=== PATIENT | female | born 2000 | race Caucasian/White ===

== ENCOUNTER 2020-09-22 14:37 | Outpatient (CLI) | payer OTHER, SELFPAY ==
--- NOTE | ~2020-09-22 | US_ITS ---
EXAMINATION: US OB /maternal detail DATE: 09/22/2020 15:40 INDICATION: Assess anatomy and growth during second trimester of . TECHNIQUE: Multiple obstetric sonographic images performed. FINDINGS: There is a single living fetus in breech presentation. The placenta is anterior and not low-lying wi th caudal margin 4.9 cm from the internal cervical os. NORMA measures 11.1 which is normal (5th%-95%: 9 .5-21.4 cm at 21 weeks estimated gestational age) . heart rate of 135 beats per minute. The following anatomy was identified as normal: Ventricles, choroid plexus, falx and cava septum pellucidum Cerebellum and cisterna magna Nuchal fold Nasal bone Upper lip Spine Heart Diaphragm Stomach Kidneys Bladder 3 vessel cord and cord insertion Bilateral upper and lower extremities including hands and feet The following biometric data were obtained: BPD: 4.8 cm -> 20 weeks 4 days Head circumference: 19.0 cm -> 21 weeks 2 days Abdominal circumference: 17.2 cm -> 22 weeks 1 days Femur length: 3.5 cm -> 21 weeks 0 days Borderline dolichocephaly with cephalic index of 69.0 slightly below the normal range (70-86). These measurements are otherwise concordant. Head circumference to abdominal circumference ratio: 1.10 (normal range 1.06-1.24). Estimated weight: 433 g (+/-) 65 g. or 15 oz. (+/-) 2 oz. IMPRESSION: 1. Single living fetus with breech presentation with heart rate of 135 bpm. 2. Gestational age by ultrasound of 21 weeks 2 day(s) (+/-) 1 week 3 day(s) with ultrasound estimat ed date of delivery (YADIEL) of 01/31/2021. Estimated weight is 75th percentile by Hadlock criteria when 02/02/2021 is used as the YADIEL. Please correlate with clinical information or earlier ultrasounds for most accurate YADIEL. 3. Normal survey. 4. Normal amniotic fluid index of 11.1 cm. 5. Borderline dolichocephaly with cephalic index of 69 slightly below the normal range of 70-86. Reviewed, dictated and finalized at location A. OL SERGEANT IMPRESSION: 1. Single living fetus with breech presentation with heart rate of 135 b pm. 2. Gestational age by ultrasound of 21 weeks 2 day(s) (+/-) 1 week 3 day(s) w ith ultrasound estimated date of delivery (YADIEL) of 01/31/2021. Estimated w eight is 75th percentile by Hadlock criteria when 02/02/2021 is used as the YADIEL. Please correlate with clinical information or earlier ultrasounds for most acc urate YADIEL. 3. Normal survey. 4. Normal amniotic fluid index of 11.1 cm. 5. Borderline dolichocephaly with cephalic index of 69 slightly below the chai l range of 70-86.
== END 2020-09-22 14:38 | disposition home or self-care (01) ==
PROVIDERS: Visit Provider Obstetrics & Gynecology
DX: Z34.92 Encounter for supervision of normal pregnancy, unspecified, second trimester (principal); Z3A.21 21 weeks gestation of pregnancy
CPT/HCPCS: 76805

== ENCOUNTER 2020-11-27 13:28 | Outpatient (CLI) | payer OTHER, SELFPAY ==
--- NOTE | ~2020-11-27 | US_ITS ---
EXAMINATION: US OB follow up DATE: 11/27/2020 14:03 INDICATION: Assess growth during third trimester . TECHNIQUE: Real-time ultrasound of the pelvis was performed. The interpreting radiologist was not pre sent for the study. COMPARISON: 09/22/2020 FINDINGS: There is a single living fetus in vertex presentation. The placenta is anterior. heart rate is 152 beats per minute (bpm). The amniotic fluid index is 15.1 cm, which is normal (5th%-95%: 9.0-23. 4 cm at 30 weeks estimated gestational age). The following biometric data were obtained: BPD: 7.9 cm -> 31 weeks 5 days Head circumference: 28.6 cm -> 31 weeks 3 days Abdominal circumference: 28.5 cm -> 32 weeks 4 days Femur length: 5.6 cm -> 29 weeks 2 days These measurements are concordant. Head circumference to abdominal circumference ratio: 1.00 (normal range 0.96-1.16). Estimated weight: 1761 g (+/-) 264 g. or 3 lbs. 14 oz. (+/-) 9 oz. IMPRESSION: 1. Single living fetus in vertex presentation with heart rate of 152 bpm. 2. Normal amniotic fluid index of 15.1 cm. 3. Estimated weight is 72nd percentile by Hadlock criteria when 02/02/2021 is used as the estima yu date of delivery (YADIEL). Please correlate with clinical information or earlier ultrasounds for mos t accurate YADIEL. Reviewed, dictated and finalized at location B. IMPRESSION: 1. Single living fetus in vertex presentation with heart rate of 152 bpm. 2. Normal amniotic fluid index of 15.1 cm. 3. Estimated weight is 72nd percentile by Hadlock criteria when 02/02/2021 is used as the estimated date of delivery (YADIEL). Please correlate with clinica l information or earlier ultrasounds for most accurate YADIEL.
== END 2020-11-27 13:29 | disposition home or self-care (01) ==
PROVIDERS: Visit Provider Obstetrics & Gynecology
DX: Z34.82 Encounter for supervision of other normal pregnancy, second trimester (principal)
CPT/HCPCS: 76816

== ENCOUNTER 2020-12-03 12:49 | Observation (INO) | payer OTHER, SELFPAY ==
[2020-12-03 13:02] VITALS: BMI 28.2
--- NOTE | 2020-12-03 13:03 | OBADM ---
This patient, Irish Pineda, admitted to the OB room OB Post 117 for observation. Patient/family oriented to hospital policies and general routines including ID bracelet, bed and alarms, visiting hours, pain management, procedures, bathroom and other care routines, personal items, smoking policy, room service/diet, and visiting hours. Patient/Family are encouraged to report perceived risks to care and to ask questions if they do not understand what they are told or what they should do.
[2020-12-03 13:15] VITALS: BP 112/65; PULSE 74
[2020-12-03 13:30] VITALS: BP 115/71; PULSE 92
--- NOTE | 2020-12-03 13:39 | PC.NURSE ---
1340- Spoke with Dr. Gottlieb, NST reviewed, no contractions noted. Patient states 0/10 pain at this time. Orders to discharge to home with follow up in office.
[2020-12-03 13:48] VITALS: BP 115/71; PULSE 73
--- NOTE | 2020-12-04 11:08 | PM.OBTRLD ---
OB - Triage/Final Diagnosis Visit Information Date of evaluation: 12/03/20 Reason for evaluation: threatened labor Comments/Additional reasons for admission: I have assessed the risk for this patient, Irish Romina Miriam, and determined that she would benefit from observation care. Evaluation Baseline heart rate: 144 Variability: Moderate (11-25) monitor accelerations: Present monitor decelerations: None Cervical dilation (cm): 0 Cervical effacement (%): 0 station: -4 Vital signs: Vital Signs - 24 hr 12/03/20 13:15 12/03/20 13:30 12/03/20 13:48 Pulse Rate 74 92 73 Blood Pressure 112/65 115/71 Blood Pressure [Left Arm] 115/71 Final Diagnosis (1) False labor: Code(s): O47.9 - False labor, unspecified Status: Acute
== END 2020-12-03 13:48 | disposition home or self-care (01) ==
PROVIDERS: Admitting Provider Obstetrics & Gynecology; Visit Provider Obstetrics & Gynecology
DX: O47.03 False labor before 37 completed weeks of gestation, third trimester (principal); Z3A.31 31 weeks gestation of pregnancy
CPT/HCPCS: 59025; G0378; G0379

== ENCOUNTER 2020-12-14 10:56 | Observation (INO) | payer OTHER, SELFPAY ==
[2020-12-14 11:30] VITALS: BP 115/66; PULSE 102
[2020-12-14 11:46] VITALS: BP 103/62; PULSE 93
[2020-12-14] MEDS: DEXTROSE 5%/LACTATED RINGERS 1,000 ML 999 ML IV CONT (11:55)
[2020-12-14 11:56] LABS: Hemoglobin 10.9 g/dL (12.0-15.0); Mean Corpuscular HGB Conc 35.2 g/dl (32-36); Mean Corpuscular Hemoglobin 32.9 pg (26-34); Mean Corpuscular Volume 93.7 fl (80-100); Mean Platelet Volume 8.7 fl (7.4-10.4); Platelet Count Result 295 k/mm3 (150-375); Red Blood Count 3.31 M/mm3 (4.2-5.4); Red Cell Distribution Width 13.9 % (11.5-14.5); White Blood Count 7.4 K/mm3 (4.5-10.0)
[2020-12-14] MEDS: METOCLOPRAMIDE HCL INJ 10 MG/2 ML VIAL IV PUSH (11:56)
[2020-12-14 12:00] VITALS: BP 100/61; PULSE 99
--- NOTE | 2020-12-14 12:00 | OBADM ---
This patient, Irish Pineda, admitted to the OB room 112 at 1056 for observation for nausea and vomiting. Patient/family oriented to hospital policies and general routines including ID bracelet, bed and alarms, visiting hours, pain management, procedures, bathroom and other care routines, personal items, smoking policy, room service/diet, and visiting hours. Patient/Family are encouraged to report perceived risks to care and to ask questions if they do not understand what they are told or what they should do.
[2020-12-14 12:09] VITALS: BMI 27.8
[2020-12-14 12:13] LABS: Alanine Aminotransferase 10 U/L (4-35); Albumin Level 3.8 g/dL (3.5-5.1); Alkaline Phosphatase 118 U/L (38-126); Anion Gap 13 mmol/L (8-16); Aspartate Amino Transferase 26 U/L (14-36); Bilirubin,Total 0.7 mg/dL (0.2-1.3); Carbon Dioxide 15 mmol/L (22-30); Chloride 109 mmol/L (98-107); Estimated CRCL calculation 135 ml/min; Estimated Glomerular Filt Rate > 60; Glucose 86 mg/dL (65-105); Sodium 137 mmol/L (137-145)
[2020-12-14 12:16] LABS: Blood Urea Nitrogen < 2 mg/dL (7-17)
[2020-12-14] MEDS: DEXTROSE 5%/LACTATED RINGERS 1,000 ML 200 ML IV CONT ×2 (12:38→14:08)
[2020-12-14 13:00] VITALS: BP 99/66; PULSE 92
--- NOTE | 2020-12-14 13:27 | PC.NURSE ---
1110- called to inform pt came in stating she has been vomiting for the last 4 days and isn't able to keep anything down. Orders received to bolus 3 liters of D5LR, IV reglan and zofran.
[2020-12-14 14:00] VITALS: BP 98/63; PULSE 92
[2020-12-14] MEDS: ONDANSETRON INJ 4 MG/2 ML VIAL IV PUSH (14:08)
[2020-12-14 15:01] VITALS: BP 95/47; PULSE 91
--- NOTE | 2020-12-14 15:27 | PC.NURSE ---
3653-'s nurse called,informed pt states she's feeling better and has had 3 liters of fluid. Orders received to discharge pt home.
--- NOTE | 2020-12-15 06:42 | PM.OBTRLD ---
OB - Triage/Final Diagnosis Visit Information Comments/Additional reasons for admission: I have assessed the risk for this patient, Irish Pineda, and determined that she would benefit from observation care. Evaluation Laboratory results: Laboratory Tests 12/14/20 12/14/20 11:48 11:48 WBC 7.4 RBC 3.31 L Hgb 10.9 L Hct 31.0 L MCV 93.7 MCH 32.9 MCHC 35.2 RDW 13.9 Plt Count 295 MPV 8.7 Sodium 137 Potassium 3.0 L Chloride 109 H Carbon Dioxide 15 L Anion Gap 13 BUN < 2 L Creatinine 0.50 L Estim Creat Clear Calc 135 Estimated GFR > 60 Glucose 86 Calcium 8.0 L Total Bilirubin 0.7 AST 26 ALT 10 Alkaline Phosphatase 118 Total Protein 7.0 Albumin 3.8 Vital signs: Vital Signs - 24 hr 12/14/20 11:30 12/14/20 11:46 12/14/20 12:00 Pulse Rate 102 H 93 99 Blood Pressure 115/66 103/62 100/61 12/14/20 13:00 12/14/20 14:00 12/14/20 15:01 Pulse Rate 92 92 91 Blood Pressure 99/66 L 98/63 L 95/47 L Final Diagnosis (1) Nausea and vomiting during : Code(s): O21.9 - Vomiting of , unspecified Status: Acute (2) Dehydration during : Code(s): O26.899 - Other specified related conditions, unspecified trimester; E86.0 - Dehydration Status: Acute
== END 2020-12-14 15:30 | disposition home or self-care (01) ==
PROVIDERS: Admitting Provider Obstetrics & Gynecology; Visit Provider Obstetrics & Gynecology
DX: O21.9 Vomiting of pregnancy, unspecified (principal); O99.280 Endocrine, nutritional and metabolic diseases complicating pregnancy, unspecified trimester; E86.0 Dehydration; Z3A.00 Weeks of gestation of pregnancy not specified
CPT/HCPCS: 36415; 80053; 85027; 96361; 96374; 96375; G0378; G0379; J2405; J2765; J7121

== ENCOUNTER 2021-02-03 06:15 | Inpatient (IN) | payer OTHER, SELFPAY ==
[2021-02-03] VITALS (136 sets, daily range): BP systolic 86–134; BP diastolic 42–83; PULSE 53–114; RESP 16–20; TEMP 36.6–37.2; O2SAT 79–100; BMI 29.4
[2021-02-03] MEDS: LACTATED RINGERS 1,000 ML 125 ML IV CONT ×3 (06:53→08:14)
[2021-02-03 06:54] LABS: Basophils Percent Auto 0.4 % (0.2-1.2); Eosinophils Absolute Auto 0.2 K/mm3 (0-0.3); Eosinophils Percent Auto 1.9 % (0-4.4); Hematocrit 32.3 % (37.0-47.0); Hemoglobin 10.9 g/dL (12.0-15.0); Immature Granulocyte Absolute 0.06 K/mm3 (0.00-0.031); Immature Granulocyte Percent A 0.6 % (0-0.5); Lymphocytes Percent Auto 28.4 % (18.3-44.2); Mean Corpuscular HGB Conc 33.7 g/dl (32-36); Mean Corpuscular Hemoglobin 31.8 pg (26-34); Mean Corpuscular Volume 94.2 fl (80-100); Mean Platelet Volume 8.7 fl (7.4-10.4); Monocytes Absolute Auto 0.7 K/mm3 (0.1-0.6); Monocytes Percent Auto 7.1 % (2.6-8.5); Neutrophils Absolute Auto 5.9 K/mm3 (1.3-6.7); Neutrophils Percent Auto 61.6 % (45.5-73.1); Platelet Count Result 407 k/mm3 (150-375); Red Blood Count 3.43 M/mm3 (4.2-5.4); Red Cell Distribution Width 14.4 % (11.5-14.5); White Blood Count 9.5 K/mm3 (4.5-10.0)
[2021-02-03] MEDS: AMPICILLIN 2 GM/NS 100 ML 2 GM/100 ML BAG IVPB (07:37)
--- NOTE | 2021-02-03 07:46 | WPDANESEPPF ---
Anes - Initial Pre Proc Eval Procedure: labor epidural Date/Time: 02/03/21 07:46 Surgeon: Cheo Gottlieb MD Pre Op Diagnosis: labor pain Pre Op Diagnosis: labor Patient Data Age: 20 Gender: F Height: 1.57 m Weight: 73 kg Last Vital Signs Pulse 62 02/03/21 07:45 BP 116/80 02/03/21 07:45 Pulse Ox 100 02/03/21 07:41 Allergies Allergy/AdvReac Type Severity Reaction Status Date / Time No Known Allergies Allergy Verified 01/20/21 14:34 Home Medications Medication Instructions Recorded Confirmed Type PNV cmb#95-ferrous fumarate-FA 1 tablet PO DAILY 12/03/20 12/14/20 History [] aspirin 81 mg PO DAILY 12/03/20 12/14/20 History calcium carbonate-vitamin D3 1 tablet PO DAILY 12/03/20 12/14/20 History [Calcium 600 + D(3)] folic acid 1 mg PO DAILY 12/03/20 12/14/20 History progesterone micronized 200 mg PO DAILY 12/03/20 12/14/20 History Laboratory Tests 02/03/21 02/03/21 02/03/21 06:48 06:48 07:21 WBC 9.5 K/mm3 K/mm3 (4.5-10.0) RBC 3.43 M/mm3 L M/mm3 (4.2-5.4) Hgb 10.9 g/dL L g/dL (12.0-15.0) Hct 32.3 % L % (37.0-47.0) MCV 94.2 fl fl (80-100) MCH 31.8 pg pg (26-34) MCHC 33.7 g/dl g/dl (32-36) RDW 14.4 % % (11.5-14.5) Plt Count 407 k/mm3 H k/mm3 (150-375) MPV 8.7 fl fl (7.4-10.4) Immature Gran % (Auto) 0.6 % H % (0-0.5) Neut % (Auto) 61.6 % % (45.5-73.1) Lymph % (Auto) 28.4 % % (18.3-44.2) [place] % (Auto) 7.1 % % (2.6-8.5) Eos % (Auto) 1.9 % % (0-4.4) Baso % (Auto) 0.4 % % (0.2-1.2) Lymph # (Auto) 2.70 K/mm3 K/mm3 (0.9-3.2) [place] # (Auto) 0.7 K/mm3 H K/mm3 (0.1-0.6) Eos # (Auto) 0.2 K/mm3 K/mm3 (0-0.3) Baso # (Auto) 0.0 K/mm3 K/mm3 (0.0-0.1) Abs Immat Gran (auto) 0.06 K/mm3 H K/mm3 (0.00-0.031) Absolute Neuts (auto) 5.9 K/mm3 K/mm3 (1.3-6.7) Absolute Nucleated RBC 0.0 K/mm3 K/mm3 (0.0-0.012) Nucleated RBC % 0.0 % % (0.0-0.2) Urine Opiates Screen Pending Urine Methadone Screen Pending Ur Barbiturates Screen Pending Ur Phencyclidine Scrn Pending Ur Amphetamine Screen Pending U Benzodiazepines Scrn Pending Urine Cocaine Screen Pending U Cannabinoids Screen Pending RPR Pending Patient hx anesthesia problems: none Family hx anesthesia problems: none PMFSH Family History Family History (Updated 01/20/21 @ 14:34 by Liliana Patel RN) Other Unknown family medical history Social History Social History Smoking status: Never smoker Second hand tobacco smoke exposure: Yes Substance use: former Spiritual care concerns: No Anes - Eval Final PreProcedure Day of Procedure 02/03/21 07:46 Patient weight: overweight ASA classification: II Anesthesia type and monitoring: regional epidural Informed Consent: The patient's anesthetic plan and its attendant risks and benefits were discussed with the patient/family/POA. Questions were solicited and answers provided to the satisfaction of the patient/family/POA.
[2021-02-03 08:04] LABS: Barbiturate Screen Urine Negative (Negative); Benzodiazepines Screen Urine Negative (Negative)
[2021-02-03 08:07] LABS: Amphetamine Screen Urine Negative (Negative); Cannabinoid Screen Urine Negative (Negative); Cocaine Screen Urine Negative (Negative); Methadone Screen Urine Negative (Negative); Opiate Screen Urine Negative (Negative); Phencyclidine Screen Urine Negative (Negative)
--- NOTE | 2021-02-03 08:39 | PM.IMHP ---
H&P: HPI History of Present Illness Date/Time: 02/03/21 08:39 20 y/o primigravida at 40W presents WITH SPONTANEOUS RUPTURE MEMBRANES AT 5:00 A.M. IN SPONTANEOUS LABOR 4 CM DILATED ON ADMISSION. complicated by hx of NG, HPV, MTHFR and GERD. Chief Complaint: Spontaneous rupture membranes spontaneous onset of labor Term Review of Systems Review of Systems: All systems reviewed & are unremarkable except as noted in HPI and below Constitutional: Constitutional: Reports no additional constitutional complaints Eyes: Eyes: Reports no additional eye complaints ENT: Reports system reviewed and no additional complaints, except as documented Cardiovascular: Cardiovascular: Reports no additional cardiovascular complaints Respiratory: Respiratory: Reports no additional respiratory complaints Gastrointestinal: Gastrointestinal: Reports no additional gastrointestinal complaints Genitourinary: Genitourinary: Reports no additional female genitourinary complaints Musculoskeletal: Musculoskeletal: Reports no additional musculoskeletal complaints Integumentary/Breasts: Skin/Breast: Reports system reviewed and no additional complaints, except as docu Neurologic: Reports system reviewed and no additional complaints, except as documented Psychiatric: Psychiatric: Reports no additional psychiatric complaints Endocrine: Endocrine: Reports no additional endocrine complaints Hematologic/Lymphatic: Hematologic/Lymphatic: Reports no additional hematologic/lymphatic complaints Allergic/Immunologic: Allergic/Immunologic: Reports no additional allergic/immunologic complaints PMF Past Medical History Medical History (Updated 02/03/21 @ 14:45 by Cheo Gottlieb MD) Gonorrhea HPV (human papilloma virus) anogenital infection Maternal varicella, non-immune Rubella non-immune status, antepartum Term Surgical History Surgical History (Updated 02/03/21 @ 14:47 by Cheo Gottlieb MD) H/O lithotripsy Family History Family History Other Unknown family medical history Social History Social History (Updated 02/03/21 @ 14:48 by Cheo Gottlieb MD) Smoking status: Never smoker Second hand tobacco smoke exposure: Yes Alcohol intake: never Substance use: former Substance use type: marijuana Living arrangements: with family Occupation/Education: unemployed Gender identity (if verbalized by the patient): Female Sexual Orientation (if Verbalized by the Patient): Straight or Heterosexual Spiritual care concerns: No Agree to blood products: Yes Meds Home Medications and Allergies Home Medications Medication Instructions Recorded Confirmed Type PNV cmb#95-ferrous fumarate-FA 1 tablet PO DAILY 12/03/20 02/03/21 History [] aspirin 81 mg PO DAILY 12/03/20 02/03/21 History calcium carbonate-vitamin D3 1 tablet PO DAILY 12/03/20 02/03/21 History [Calcium 600 + D(3)] folic acid 1 mg PO DAILY 12/03/20 02/03/21 History progesterone micronized 200 mg PO DAILY 12/03/20 02/03/21 History Allergies Allergy/AdvReac Type Severity Reaction Status Date / Time No Known Allergies Allergy Verified 01/20/21 14:34 Vital Signs Vital Signs - 24 hr 02/03/21 06:56 02/03/21 07:00 02/03/21 07:15 Temperature Pulse Rate 64 76 86 Blood Pressure 115/83 124/80 134/77 Pulse Oximetry 02/03/21 07:30 02/03/21 07:34 02/03/21 07:37 Temperature Pulse Rate 79 63 69 Blood Pressure 112/74 118/75 111/73 Pulse Oximetry 79 L 02/03/21 07:39 02/03/21 07:41 02/03/21 07:42 Temperature Pulse Rate 74 63 Blood Pressure 113/64 115/70 Pulse Oximetry 100 100 02/03/21 07:44 02/03/21 07:45 02/03/21 07:46 Temperature Pulse Rate 59 L 62 Blood Pressure 119/78 116/80 Pulse Oximetry 99 02/03/21 07:48 02/03/21 07:51 02/03/21 07:54 Temperature Pulse Rate 59 L 66 65 Blood Pressure 120/76 116/67 1
--- NOTE | 2021-02-03 08:42 | WPDOBADMIT ---
Obstetrics - Admit Note Admission Note: record reviewed. No pertinent additions to the history and/or any subsequent changes in the physical findings that are not consistent with the expected course of the were found. Additions to the history and/or subsequent changes in the physical findings follow. None. 20 y/o primigravida at 40W presents WITH SPONTANEOUS RUPTURE MEMBRANES AT 5:00 A.M. IN SPONTANEOUS LABOR 4 CM DILATED ON ADMISSION. complicated by hx of NG, HPV, MTHFR and GERD.
[2021-02-03] MEDS: ONDANSETRON INJ 4 MG/2 ML VIAL IV PUSH (08:56)
[2021-02-03 08:57] LABS: Rapid Plasma Reagin Non-Reactive (NonReactive)
[2021-02-03] MEDS: AMPICILLIN 1 GM/NS 50 ML 1 GM/50 ML BAG IVPB (11:19)
[2021-02-03] MEDS: OXYTOCIN 30 UNITS/NS 500 ML 30 UNITS/500 ML BAG 999 UNITS IV CONT (14:26)
--- NOTE | 2021-02-03 14:34 | PM.OBPRVD ---
OB - Delivery Note Procedure Delivery date: 02/03/21 Procedure: Normal spontaneous vertex vaginal delivery a viable female infant and placenta Intrapartal events: None Induction method: none Delivery monitor: external FHT and external uterine Route of delivery: Episiotomy description: None Laceration Description: None Specimen: Yes (Placenta, cord blood, cord blood gases) Quantitative Blood Loss (ml): 250 Anesthesia type: Epidural Disposition: floor Complications: None Narrative: Adequate pushing in the 2nd stage of labor capped off by successful tug of war. Normal spontaneous vertex vaginal delivery of viable female over an intact perineum with normal delivery of the anterior shoulder and baby delivered and placed onto the maternal abdomen with a short umbilical cord the cord was clamped and cut. Spontaneous respirations and cry no observed abnormalities in the examination except for normal molding of the caput. Placenta cord gases cord blood obtained and then the placenta was delivered intact with a three-vessel cord the uterus contracted well with Pitocin given intravenously blood clots removed from the intrauterine cavity the uterus was firm at 4 cm above the pubic symphysis. There were no cuts tears or lacerations the sponge count correct no complication baby was handed to the nurse in attendance scores 8 9 weight 7 lb 13 oz taken to the nursery in stable condition. [place] Baby Date of : 02/03/21 Time of : 14:23 Weeks of gestation at delivery: 40 gender: Female Weight (pounds): 7 Weight (ounces): 13 presentation: vertex position: Left Occiput Posterior Placenta delivery description: Spontaneous and Normal Configuration cord vessel description: 3 Vessels score one minute: 8 score five minutes: 9 Narrative: 2 nursery stable condition
--- NOTE | 2021-02-03 14:42 | WPDHPUPDATE1 ---
History and Physical Update Update Date/Time: 02/03/21 09:00 History and Physical has been reviewed, including an updated exam of the patient. There are NO changes in the patient's condition. Risks, benefits, and alternatives have been discussed and questions answered. Patient agrees to proceed with procedure. 20 y/o primigravida at 40W presents WITH SPONTANEOUS RUPTURE MEMBRANES AT 5:00 A.M. IN SPONTANEOUS LABOR 4 CM DILATED ON ADMISSION. complicated by hx of NG, HPV, MTHFR and GERD.
[2021-02-03] MEDS: OXYTOCIN 30 UNITS/NS 500 ML 30 UNITS/500 ML BAG 125 UNITS IV CONT (14:50)
--- NOTE | 2021-02-03 17:33 | PC.NURSE ---
Patient transferred to post room #277 per wheelchair from labor and delivery. Support person present. Oriented to unit, room, information board, rooming in, admission packet and security measures. Patient verbalizes understanding.
[2021-02-04] MEDS: IBUPROFEN 600 MG TABLET PO ×4 (04:20→23:21)
[2021-02-04 05:34] VITALS: BP 98/51; PULSE 64; PULSE 65; RESP 16; TEMP 36.2; O2SAT 97; O2SAT 98
[2021-02-04 05:50] LABS: Hematocrit 26.8 % (37.0-47.0); Hemoglobin 9.1 g/dL (12.0-15.0)
[2021-02-04 07:35] VITALS: BP 88/49; PULSE 59; RESP 16; TEMP 37.2; O2SAT 100
[2021-02-04] MEDS: DOCUSATE SODIUM 100 MG CAPSULE PO ×2 (09:44→17:56)
[2021-02-04] MEDS: POLYSACCHARIDE IRON COMPLEX 150 MG CAPSULE PO ×2 (09:44→17:52)
[2021-02-04 12:09] VITALS: BP 101/55; PULSE 67; RESP 16; TEMP 37.7; O2SAT 95
--- NOTE | 2021-02-04 15:42 | WPDANLDPN2 ---
Anes-Prog Note L&D Date/Time: 02/04/21 15:42 Comfortable throughout: labor and delivery Neuraxial method: epidural Neuro status: Neuro function grossly intact. Cardiovascular status: normal Respiratory status: normal Airway patency: baseline Mental status: baseline Post-Op hydration status: normal Vital Signs: Last Vital Signs Temp 37.7 C H 02/04/21 12:09 Pulse 67 02/04/21 12:09 Resp 16 02/04/21 12:09 BP 101/55 L 02/04/21 12:09 Pulse Ox 95 02/04/21 12:09 Pain score (VAS): 0/10. Patient resting in bed at time of assessment, appears comfortable. Support person at bedside. I/O: Intake & Output 02/03/21 02/04/21 02/04/21 23:59 07:59 15:59 Output Total 100 Balance -100 Post-procedural complaints: none Patient feedback: Patient satisfied with anesthetic care.
--- NOTE | 2021-02-04 18:43 | PC.NURSE ---
[id number] Patient and FOB viewed the discharge video Mother & Baby Care, The First Two Weeks . Patient was given the opportunity and encouraged to ask questions. Patient verbalized understanding of information shared and has been given the mother/baby guide for home reference.
[2021-02-04 19:00] VITALS: BP 104/62; PULSE 58; RESP 18; TEMP 37.1; O2SAT 98
--- NOTE | 2021-02-05 05:30 | P.PNOB_ITS ---
OB - PN: Subj Subjective Date/time seen: 02/04/21 05:30 Interval history: ppd1 Patient comments: no complaints, pain well controlled, tolerating diet and flatus present [place] baby status: doing well and nursing well feeding status: exclusively breast feeding OB - PN: Obj Data Labs CBC & Chem 7: 02/04/21 04:19 Labs: Laboratory Results - last 24 hr 02/04/21 04:19 Hgb 9.1 L Hct 26.8 L OB - PN A/P Assessment and Plan (1) Term delivered: Code(s): O80 - Encounter for full-term uncomplicated delivery Status: Acute Plan day: 1 Plan: routine care, discharge home and follow up 6 weeks Time Spent With Patient Time: Total time spent is greater than 50% in coordination of care (as d ocumented) at patient's floor/unit and/or counseling patient: Time with patient: less than 15 minutes Review of Systems Review of Systems: All systems reviewed & are unremarkable except as noted in HPI and below Exam Const: General: cooperative, healthy appearing, comfortable, no acute distress, well developed, alert, awake and Physically active Nutritional Appearance: average body habitus Orientation/consciousness: patient oriented x3 Limitations: no limitations HENMT: Head: normal to inspection Eyes: General: appearance normal, both eyes and all related structures Neck: Neck: normal visual inspection and full ROM Chest: Chest palpation & inspection: normal inspection of the chest Breast/axilla inspection: normal inspection of the breasts Resp: Effort & Inspection: normal respiratory effort Auscultation: clear to auscultation bilaterally Cardio: Rate: regular rate Rhythm: regular rhythm GI: Inspection: normal to inspection GI Palp: Yes Soft to palpation Auscultation: normal bowel sounds : External Female Exam: normal external appearance Bimanual exam- vagina & uterus: non-tender Back/Spine/Pelvis: Back: no CVA tenderness Skin: General skin exam: normal color Neuro: General: patient oriented x3, gait normal, tone normal and moves all extremities Extrem: General: normal to inspection and full ROM Psych: Appearance: grossly normal Mental Status: mental status grossly normal Speech and movement: Normal speech and movement present Affect: normal affect Attitude: cooperative Thought process: Normal thought process present Thought content: Yes Normal thought content present Insight: Good insight present (Psych) Judgement: Good judgement present (Psych)
--- NOTE | 2021-02-05 05:36 | PM.OBDSVD ---
DS: Admitting Diagnosis Admitting Diagnosis Admitting Diagnosis: Term spontaneous onset of labor spontaneous rupture of membranes DS: Discharge Diagnosis Discharge Diagnosis (1) Term delivered: Code(s): O80 - Encounter for full-term uncomplicated delivery Status: Acute (2) Spontaneous onset of labor: Status: Acute (3) Spontaneous rupture of membranes: Status: Acute (4) Maternal varicella, non-immune: Code(s): O09.899 - Supervision of other high risk pregnancies, unspecified trimester; Z28.3 - Underimmunization status Status: Acute (5) Rubella non-immune status, antepartum: Code(s): O99.891 - Other specified diseases and conditions complicating ; Z28.3 - Underimmunization status Status: Acute (6) Homozygous MTHFR mutation [id number]: Code(s): Z15.89 - Genetic susceptibility to other disease Status: Acute OB - DS: Summary Hospital Course Time spent discussing smoking cessation with patient: 3 to 10 minutes OB Procedures : Ultrasound OB Procedures Intrapartum: Spontaneous Vag Delivery OB Procedures: : Rubella lg and Other (Varicella Ig) Peripartum Data Delivery Method: Natural Vaginal Laceration Description: None Episiotomy description: None complications: none [place] 1: Gender: Female Disposition of : home Status at Discharge Functional status at discharge: independent ambulation Overall status at discharge: patient is back to baseline Time Spent with Patient Time attestation: Total time spent providing and/or coordinating discharge services: Time spent: Less than 30 minutes Exam Const: General: cooperative, healthy appearing, comfortable, well developed, alert, awake and Physically active Nutritional Appearance: average body habitus Orientation/consciousness: patient oriented x3 Limitations: no limitations HENMT: Head: normal to inspection Eyes: General: appearance normal, both eyes and all related structures Neck: Neck: normal visual inspection and full ROM Chest: Chest palpation & inspection: normal inspection of the chest Breast/axilla inspection: normal inspection of the breasts Resp: Effort & Inspection: normal respiratory effort Auscultation: clear to auscultation bilaterally Cardio: Rate: regular rate Rhythm: regular rhythm GI: Inspection: normal to inspection GI Palp: Yes Soft to palpation : External Female Exam: normal external appearance Bimanual exam- vagina & uterus: non-tender Back/Spine/Pelvis: Back: no CVA tenderness Skin: General skin exam: normal color Neuro: General: patient oriented x3, gait normal, tone normal, moves all extremities and Normal light touch and pain sensation Extrem: General: normal to inspection, full ROM and no clubbing, cyanosis or edema Psych: Appearance: grossly normal Mental Status: mental status grossly normal Speech and movement: Normal speech and movement present Affect: normal affect Attitude: cooperative Thought process: Normal thought process present Thought content: Yes Normal thought content present Insight: Good insight present (Psych) Judgement: Good judgement present (Psych) DS: Data Data Completed and Pending Pending studies at discharge: Pending at discharge 02/03/21 15:12 Surgical [PTH] Routine Labs on day of discharge: Labs from last 24 hours 02/04/21 04:19 Hgb 9.1 L Hct 26.8 L Discharge Plan Discharge Attending physician on discharge: Cheo Gottlieb Discharging Clinician: Cheo Gottlieb Anticipated Discharge Date/Time: 02/05/21 05:43 Patient Disposition: Home, Self-Care Activity: may shower, unlimited and as tolerated Diet: as tolerated and regular Wound Care Instructions: follow printed instructions Discharge Instructions: routine Patient Instructions: Antibiotic Form Stand Alone Forms: General Discharge Information Foll
[2021-02-05] MEDS: IBUPROFEN 600 MG TABLET PO ×2 (06:02→12:51)
[2021-02-05 10:00] VITALS: BP 106/72; PULSE 62; RESP 18; TEMP 36.3; O2SAT 100
[2021-02-05] MEDS: POLYSACCHARIDE IRON COMPLEX 150 MG CAPSULE PO (10:24)
[2021-02-05] MEDS: DOCUSATE SODIUM 100 MG CAPSULE PO (10:24)
[2021-02-05] MEDS: MEASLES,MUMPS,RUBELLA VACCINE 0.5 ML VIAL SUB-Q (11:17)
== END 2021-02-05 13:12 | disposition home or self-care (01) | DRG 560 ==
LOC: ANHLDR 06:22 → ANHOB2 17:43
PROVIDERS: Admitting Provider Obstetrics & Gynecology; Visit Provider Obstetrics & Gynecology
DX: O99.284 Endocrine, nutritional and metabolic diseases complicating childbirth (principal); Z37.0 Single live birth; Z3A.40 40 weeks gestation of pregnancy; E72.12 Methylenetetrahydrofolate reductase deficiency; O99.62 Diseases of the digestive system complicating childbirth; K21.9 Gastro-esophageal reflux disease without esophagitis; O98.32 Other infections with a predominantly sexual mode of transmission complicating childbirth; A63.0 Anogenital (venereal) warts; O98.22 Gonorrhea complicating childbirth
CPT/HCPCS: 36415; 80307; 84112; 85014; 85018; 85025; 86592; 86850; 86900; 86901; 88307; 90710; A9270; J0290; J2405; J2590; J2795; J7120

== ENCOUNTER 2022-06-24 06:07 | Inpatient (IN) | payer OTHER, SELFPAY ==
[2022-06-24] VITALS (120 sets, daily range): BP systolic 51–125; BP diastolic 28–83; PULSE 50–94; RESP 16; TEMP 36.4–37.7; O2SAT 92–100; BMI 29.4
[2022-06-24] MEDS: LACTATED RINGERS 1,000 ML 125 ML IV CONT ×2 (07:00→08:59)
[2022-06-24] MEDS: OXYTOCIN 30 UNITS/NS 500 ML 30 UNITS/500 ML BAG IV CONT (07:04)
[2022-06-24 07:16] LABS: Basophils Absolute Auto 0.1 K/mm3 (0.0-0.1); Basophils Percent Auto 0.7 % (0.2-1.2); Eosinophils Absolute Auto 0.1 K/mm3 (0-0.3); Eosinophils Percent Auto 1.2 % (0-4.4); Hematocrit 28.3 % (37.0-47.0); Hemoglobin 8.7 g/dL (12.0-15.0); Immature Granulocyte Absolute 0.04 K/mm3 (0.00-0.031); Immature Granulocyte Percent A 0.5 % (0-0.5); Lymphocytes Absolute Auto 2.23 K/mm3 (0.9-3.2); Lymphocytes Percent Auto 27.5 % (18.3-44.2); Mean Corpuscular HGB Conc 30.7 g/dl (32-36); Mean Corpuscular Hemoglobin 25.5 pg (26-34); Mean Platelet Volume 8.7 fl (7.4-10.4); Monocytes Absolute Auto 0.5 K/mm3 (0.1-0.6); Monocytes Percent Auto 5.8 % (2.6-8.5); Neutrophils Absolute Auto 5.2 K/mm3 (1.3-6.7); Neutrophils Percent Auto 64.3 % (45.5-73.1); Platelet Count Result 468 k/mm3 (150-375); Red Blood Count 3.41 M/mm3 (4.2-5.4); Red Cell Distribution Width 15.6 % (11.5-14.5); White Blood Count 8.1 K/mm3 (4.5-10.0)
--- NOTE | 2022-06-24 07:35 | WPDOBADMIT ---
Obstetrics - Admit Note Admission Note: record reviewed. No pertinent additions to the history and/or any subsequent changes in the physical findings that are not consistent with the expected course of the were found. pt 41 weeks IOL, /-2 AROM moderate amount of clear odorless fluid Additions to the history and/or subsequent changes in the physical findings follow. None.
[2022-06-24] MEDS: fentaNYL CITRATE INJ (*CRX) 100 MCG/2 ML VIAL IV PUSH (08:07)
[2022-06-24] MEDS: ONDANSETRON INJ 4 MG/2 ML VIAL IV PUSH (08:08)
[2022-06-24] MEDS: LACTATED RINGERS 1,000 ML 999 ML IV CONT (08:09)
--- NOTE | 2022-06-24 08:23 | WPDANESEPP ---
Anes - Eval Pre Procedure Procedure: Labor Epidural Date/Time: 06/24/22 08:23 Surgeon: Jennifer Preop Diagnosis: Labor pain Pre Op Diagnosis: Induction of Labor Patient Data Age: 21 Gender: F Height: 1.57 m Weight: 73 kg Last Vital Signs Temp 36.8 C 06/24/22 08:00 Pulse 65 06/24/22 08:17 BP 97/52 L 06/24/22 08:17 Pulse Ox 96 06/24/22 08:21 Allergies Allergy/AdvReac Type Severity Reaction Status Date / Time No Known Allergies Allergy Verified 06/06/22 12:31 Home Medications Medication Instructions Recorded Confirmed Type vit no.95-ferrous 1 tablet PO DAILY 12/03/20 06/24/22 History fumarate 28 mg-folic acid 800 mcg tablet () Laboratory Tests 06/24/22 06/24/22 06/24/22 06:53 06:53 06:54 WBC 8.1 K/mm3 K/mm3 (4.5-10.0) RBC 3.41 M/mm3 L M/mm3 (4.2-5.4) Hgb 8.7 g/dL L g/dL (12.0-15.0) Hct 28.3 % L % (37.0-47.0) MCV 83.0 fl fl (80-100) MCH 25.5 pg L pg (26-34) MCHC 30.7 g/dl L g/dl (32-36) RDW 15.6 % H % (11.5-14.5) Plt Count 468 k/mm3 H k/mm3 (150-375) MPV 8.7 fl fl (7.4-10.4) Immature Gran % (Auto) 0.5 % % (0-0.5) Neut % (Auto) 64.3 % % (45.5-73.1) Lymph % (Auto) 27.5 % % (18.3-44.2) Dewey % (Auto) 5.8 % % (2.6-8.5) Eos % (Auto) 1.2 % % (0-4.4) Baso % (Auto) 0.7 % % (0.2-1.2) Lymph # (Auto) 2.23 K/mm3 K/mm3 (0.9-3.2) Dewey # (Auto) 0.5 K/mm3 K/mm3 (0.1-0.6) Eos # (Auto) 0.1 K/mm3 K/mm3 (0-0.3) Baso # (Auto) 0.1 K/mm3 K/mm3 (0.0-0.1) Abs Immat Gran (auto) 0.04 K/mm3 H K/mm3 (0.00-0.031) Absolute Neuts (auto) 5.2 K/mm3 K/mm3 (1.3-6.7) Absolute Nucleated RBC 0.0 K/mm3 K/mm3 (0.0-0.012) Nucleated RBC % 0.0 % % (0.0-0.2) RPR Pending Blood Type A Positive Antibody Screen Pending : gestational age (YADIEL 06/17/22, ) Patient hx anesthesia problems: none Family hx anesthesia problems: none Results Review: All pre-operative results and documents have been reviewed as part of the pre-operative evaluation. [facility] Past Medical History Medical History Gonorrhea HPV (human papilloma virus) anogenital infection Maternal varicella, non-immune Rubella non-immune status, antepartum Term Surgical History Surgical History H/O lithotripsy Family History Family History Other Unknown family medical history Social History Social History Smoking status: Never smoker Second hand tobacco smoke exposure: No Alcohol intake: never Substance use: never Substance use type: marijuana Gender identity (if verbalized by the patient): Female Sexual Orientation (if Verbalized by the Patient): Straight or Heterosexual Spiritual care concerns: No Agree to blood products: Yes Exam Day of Procedure 06/24/22 08:23 Patient weight: normal Heart: regular rate and rhythm Lungs: normal air movement Airway: Mallampati scale class II Neurological: alert and oriented
[2022-06-24] MEDS: ePHEDrine sulfate INJ 50 MG/ML AMPUL IV PUSH (08:52)
--- NOTE | 2022-06-24 12:37 | PM.OBPRVD ---
OB - Delivery Note Procedure Delivery date: 06/24/22 Procedure: Events: Elective Induction of Labor Induction method: Per Pitocin Protocol Delivery augmentation: Rupture of Membranes Delivery monitor: External FHT and External Uterine Route of delivery: Episiotomy description: None Laceration Description: None Specimen: No Quantitative Blood Loss (ml): 76 Anesthesia type: Epidural Disposition: Floor Baby Date of : 06/24/22 Time of : 12:27 Weeks of gestation at delivery: 41 Infant gender: Female Weight (pounds): 8 Weight (ounces): 0 presentation: vertex position: Left Occiput Anterior (rotated transverse) Placenta delivery description: Spontaneous Cord Vessel Description: 3 Vessels, Nuchal Cord (x1), Tight and Clamped/Cut score one minute: 9 score five minutes: 9 Narrative: mom and baby stable and doing skin to skin
[2022-06-24 12:41] LABS: Rapid Plasma Reagin Non-Reactive (NonReactive)
[2022-06-24] MEDS: IBUPROFEN 600 MG TABLET PO ×2 (14:40→19:49)
[2022-06-25] MEDS: IBUPROFEN 600 MG TABLET PO ×2 (03:59→11:52)
[2022-06-25 04:00] VITALS: BP 99/55; PULSE 60; RESP 18; TEMP 36.8
--- NOTE | 2022-06-25 07:00 | PC.NURSE ---
PT introductions made and plan of care discussed per post , pain management, bottle feeding, daily care activities and pending discharge to home. PT and spouse both recipients of such instructions and no barriers to learning identified at this time. PT received such instructions per one to one discussion, mom baby care guide and demonstrations this shift. PT verbalized understanding of such care.
[2022-06-25 08:00] VITALS: BP 104/66; PULSE 108; RESP 12; TEMP 36.5; O2SAT 100
--- NOTE | 2022-06-25 08:32 | PM.OBPNVD ---
OB - PN: Subj Subjective Date/time seen: 06/25/22 08:32 Patient comments: no complaints baby status: doing well OB - PN: Obj Data Labs CBC & Chem 7: 06/24/22 06:54 Labs: Laboratory Results - last 24 hr 06/24/22 06/24/22 06:53 06:53 RPR Non-reactive Antibody Screen Negative OB - PN A/P Plan day: 1 Plan: routine care Comments: Awaiting post bloodwork. Time Spent With Patient Time: Total time spent is greater than 50% in coordination of care (as documented) at patient's floor/unit and/or counseling patient: Time with patient: less than 15 minutes Review of Systems Review of Systems: All systems reviewed & are unremarkable except as noted in HPI and below Exam Narrative: Fundus firm and vaginal flow controlled. No lower ext redness, warmth, or edema. Negative homans. Const: General: comfortable Chest: Breast/axilla inspection: normal inspection of the breasts Resp: Effort & Inspection: normal respiratory effort Cardio: Rate: regular rate GI: GI Palp: Yes Soft to palpation Psych: Appearance: grossly normal Affect: normal affect Attitude: cooperative Thought content: Yes Normal thought content present Judgement: Good judgement present (Psych)
[2022-06-25 11:30] VITALS: PULSE 108; RESP 12; O2SAT 100
[2022-06-25] MEDS: POLYSACCHARIDE IRON COMPLEX 150 MG CAPSULE PO (11:52)
[2022-06-25] MEDS: MULTIVIT/MIN/PREN/FOL AC/IRON TABLET 1 TAB PO (11:52)
[2022-06-25] MEDS: ACETAMINOPHEN 325 MG TABLET 650 MG PO (11:54)
[2022-06-25] MEDS: DOCUSATE SODIUM 100 MG CAPSULE PO (11:54)
--- NOTE | 2022-06-25 13:04 | WPDANLDPN2 ---
Anes-Prog Note L&D Date/Time: 06/25/22 13:04 Comfortable throughout: labor and delivery Neuraxial method: epidural Epidural/Spinal procedure site: clean & non-tender Neuro status: Neuro function grossly intact. Cardiovascular status: normal Respiratory status: normal Airway patency: baseline Mental status: baseline Post-Op hydration status: normal Vital Signs: Last Vital Signs Temp 36.5 C 06/25/22 08:00 Pulse 108 H 06/25/22 08:00 Resp 12 06/25/22 08:00 BP 104/66 06/25/22 08:00 Pulse Ox 100 06/25/22 08:00 O2 Del Method Room Air 06/24/22 19:50 Pain score (VAS): 09/20 I/O: Intake & Output 06/24/22 06/25/22 06/25/22 23:59 07:59 15:59 Intake Total 500 Balance 500 Post-procedural complaints: none Patient feedback: Patient satisfied with anesthetic care.
[2022-06-25 13:38] LABS: Hematocrit 25.1 % (37.0-47.0); Hemoglobin 7.6 g/dL (12.0-15.0)
--- NOTE | 2022-06-25 15:30 | PC.NURSE ---
PT received discharge instructions per protocol and verbalized understanding of such care.
--- NOTE | 2022-06-25 15:56 | PC.NURSE ---
Pt discharged to home ambulatory accompanied by fob and infant and taken to waiting car. follow up appts confirmed
--- NOTE | 2022-07-20 23:16 | PM.OBDSVD ---
DS: Admitting Diagnosis Discharge Date 06/25/22 Admitting Diagnosis term DS: Discharge Diagnosis Discharge Diagnosis (1) Term delivered: Code(s): O80 - Encounter for full-term uncomplicated delivery Status: Acute OB - DS: Summary OB Procedures : None OB Procedures Intrapartum: Spontaneous Vag Delivery OB Procedures: : None Time Spent with Patient Time attestation: Total time spent providing and/or coordinating discharge services: Discharge Plan Discharge Consulting providers: Jennifer Ortiz ; Jennifer Johns ; Viry Baumann Discharging Clinician: Jessica Rodriguez Patient Disposition: Home, Self-Care Activity: may shower, no straining, may drive after 2 weeks, as tolerated and pelvic rest Diet: regular Discharge Instructions: Education: Mom and Baby Guide Given to: Mother Follow-Up: Call your delivering provider's office for an appointment to be seen in: 6 Weeks Mom and baby should come to the [facility] for the follow-up appointment. Appointment Date/Time: June 27, 2022 at 10:00 am What to expect at your follow-up visit: Blood Pressure Check Call [phone] if you are unable to keep your appointment time. BREAST CARE: * Wear a snug supportive bra. * For engorgement discomfort: Bottle Feeding: * May apply ice packs PERINEAL CARE: * Until bleeding stops, use your arthur bottle after urinating * Change your pad frequently throughout the day * You may take sitz baths several times a day (fill your bathtub with warm water and soak for 20 minutes.) Do NOT bathe in the water * No tub baths until seen by your physician - You may shower ACTIVITY: * Rest as much as possible. * Do not exercise or lift anything heavier than your baby (such as laundry or other children.) * Avoid stairs or driving as much as possible. * Do not put anything into the vagina. No douching, tampons, or sexual activity until seen by physician. NOTIFY PHYSICIAN IF YOU HAVE ANY QUESTIONS OR IF ANY OF THE FOLLOWING SYMPTOMS OCCUR: * If your perineum becomes red, swollen, or more painful than what you have experienced in the hospital. * If your vaginal bleeding becomes foul smelling. * If your vaginal bleeding becomes more heavy than a period or if your bleeding changes from pink to bright red. However, you may pass an occasional walnut-sized clot once or twice for the first week . * If you experience a sharp, shooting pain in you calves. * If you discover a hard, reddened area on your breast or if you experience flu-like symptoms. * If you have a fever of 100.4 or greater DIET: * Eat regular, well-balanced meals. * Drink plenty of fluids daily. If , drink to thirst. Patient Instructions: Antibiotic Form Follow-up/Referrals: Jessica Rodriguez MD [Physician] - Discharge Medications: New acetaminophen [Mapap (acetaminophen)] 325 mg Tablet 650 mg PO Q6H PRN (Reason: Mild Pain (1-3) Or Headache) 0RF Dermoplast (with menthol) 20-0.5 % Aerosol 1 spray topical PRN PRN (Reason: Perineal Discomfort) 0RF polysaccharide iron complex 150 mg iron Capsule 150 mg PO BIDWM 0RF docusate sodium 100 mg Capsule 100 mg PO BID PRN (Reason: Constipation) 0RF ibuprofen 600 mg Tablet 600 mg PO Q6H PRN (Reason: Cramping) 0RF KPN Tablet 1 tab PO DAILY 0RF Preparation H (Witch Josseline) 50 % Pads, Medicated 1 pad topical PRN PRN (Reason: Perineal Discomfort) 0RF Continued PNV cmb#95-ferrous fumarate-FA [] 28 mg iron- 800 mcg tablet 1 tablet PO DAILY Date of admission: 06/24/22 06:07 Primary Care Provider: Jennifer Johns Admitting Provider: Jessica Rodriguez Attending physician on admission: Jessica Rodriguez Condition: Stable
== END 2022-06-25 15:56 | disposition home or self-care (01) | DRG 560 ==
LOC: ANHLDR 06:12 → ANHOB2 15:54
PROVIDERS: Admitting Provider Obstetrics & Gynecology; PCP Advanced Practice Midwife; Visit Provider Obstetrics & Gynecology
DX: O69.1XX0 Labor and delivery complicated by cord around neck, with compression, not applicable or unspecified (principal); O69.3XX0 Labor and delivery complicated by short cord, not applicable or unspecified; O77.0 Labor and delivery complicated by meconium in amniotic fluid; O76 Abnormality in fetal heart rate and rhythm complicating labor and delivery; Z3A.41 41 weeks gestation of pregnancy; Z37.0 Single live birth
CPT/HCPCS: 36415; 85014; 85018; 85025; 86592; 86850; 86900; 86901; A9270; J2405; J2590; J2795; J3010; J7120

== ENCOUNTER 2023-10-06 09:42 | Inpatient (IN) | payer OTHER, SELFPAY ==
[2023-10-06] VITALS (99 sets, daily range): BP systolic 86–126; BP diastolic 40–81; PULSE 54–151; RESP 16–20; TEMP 36.4–37.2; O2SAT 95–100; BMI 29.0
--- NOTE | 2023-10-06 09:42 | LDADM ---
This patient, Irish Pineda, was admitted to Labor/Delivery/Recovery 106 on 10/06/23 at 09:42. Plans for labor, pain management and were discussed with patient. Patient/family oriented to hospital policies and general routines including ID bracelet, bed and alarms, visiting hours, pain management, procedures, bathroom and other care routines, personal items, smoking policy, room service/diet and guest tray routines, infant security routines, and visiting hours. Patient/Family are encouraged to report perceived risks to care and to ask questions if they do not understand what they are told or what they should do. See OBIX for further documentation.
[2023-10-06 10:15] LABS: Basophils Absolute Auto 0.1 K/mm3 (0.0-0.1); Basophils Percent Auto 0.7 % (0.2-1.2); Eosinophils Absolute Auto 0.1 K/mm3 (0-0.3); Eosinophils Percent Auto 0.6 % (0-4.4); Hematocrit 26.5 % (37.0-47.0); Hemoglobin 7.9 g/dL (12.0-15.0); Immature Granulocyte Absolute 0.02 K/mm3 (0.00-0.031); Immature Granulocyte Percent A 0.2 % (0-0.5); Lymphocytes Absolute Auto 1.99 K/mm3 (0.9-3.2); Lymphocytes Percent Auto 23.6 % (18.3-44.2); Mean Corpuscular HGB Conc 29.8 g/dl (32-36); Mean Corpuscular Hemoglobin 23.1 pg (26-34); Mean Corpuscular Volume 77.5 fl (80-100); Mean Platelet Volume 9.1 fl (7.4-10.4); Monocytes Absolute Auto 0.4 K/mm3 (0.1-0.6); Monocytes Percent Auto 5.2 % (2.6-8.5); Neutrophils Absolute Auto 5.9 K/mm3 (1.3-6.7); Neutrophils Percent Auto 69.7 % (45.5-73.1); Platelet Count Result 434 k/mm3 (150-375); Red Blood Count 3.42 M/mm3 (4.2-5.4); Red Cell Distribution Width 16.5 % (11.5-14.5); White Blood Count 8.4 K/mm3 (4.5-10.0)
[2023-10-06 10:27] LABS: Anisocytosis 1+ (NORMAL); Hypochromasia 1+ (NORMAL); Platelet Estimate Adequate (Adequate); Schistocytes None Seen (NORMAL)
--- NOTE | 2023-10-06 10:50 | WPDOBADMIT ---
Obstetrics - Admit Note Admission Note: record reviewed. No pertinent additions to the history and/or any subsequent changes in the physical findings that are not consistent with the expected course of the were found. Additions to the history and/or subsequent changes in the physical findings follow. IOL, decreased movement, anemia, plan blood transfusion, AROM clear odorless fluid anticipate vaginal delivery
[2023-10-06] MEDS: LACTATED RINGERS 1,000 ML 125 ML IV CONT ×2 (11:23→11:43)
[2023-10-06 11:32] LABS: Influenza A QL RT-PCR Negative (Negative); Influenza B QL RT-PCR Negative (Negative); RSV RNA, RT-PCR Negative (Negative); SARS-CoV-2 RNA PCR Negative (Negative)
--- NOTE | 2023-10-06 11:51 | WPDANESEPP ---
Anes - Eval Pre Procedure Procedure: labor pain management Date/Time: 10/06/23 11:51 Surgeon: Jennifer Preop Diagnosis: pain during labor Pre Op Diagnosis: Labor Patient Data Age: 23 Gender: F Height: 1.57 m Weight: 72 kg Last Vital Signs Temp 97.9 F 10/06/23 11:00 Pulse 67 10/06/23 11:45 BP 109/64 10/06/23 11:45 Pulse Ox 98 10/06/23 11:50 O2 Del Method Room Air 10/06/23 10:13 Allergies Allergy/AdvReac Type Severity Reaction Status Date / Time No Known Allergies Allergy Verified 06/06/22 12:31 Home Medications Medication Instructions Recorded Confirmed Type vit no.95-ferrous 1 tablet PO DAILY 12/03/20 10/06/23 History fumarate 28 mg-folic acid 800 mcg tablet () Laboratory Tests 10/06/23 10/06/23 09:57 10:44 WBC 8.4 K/mm3 (4.5-10.0) RBC 3.42 L M/mm3 (4.2-5.4) Hgb 7.9 L g/dL (12.0-15.0) Hct 26.5 L % (37.0-47.0) MCV 77.5 L fl (80-100) MCH 23.1 L pg (26-34) MCHC 29.8 L g/dl (32-36) RDW 16.5 H % (11.5-14.5) Plt Count 434 H k/mm3 (150-375) MPV 9.1 fl (7.4-10.4) Immature Gran % (Auto) 0.2 % (0-0.5) Neut % (Auto) 69.7 % (45.5-73.1) Lymph % (Auto) 23.6 % (18.3-44.2) Adams % (Auto) 5.2 % (2.6-8.5) Eos % (Auto) 0.6 % (0-4.4) Baso % (Auto) 0.7 % (0.2-1.2) Lymph # (Auto) 1.99 K/mm3 (0.9-3.2) Adams # (Auto) 0.4 K/mm3 (0.1-0.6) Eos # (Auto) 0.1 K/mm3 (0-0.3) Baso # (Auto) 0.1 K/mm3 (0.0-0.1) Abs Immat Gran (auto) 0.02 K/mm3 (0.00-0.031) Absolute Neuts (auto) 5.9 K/mm3 (1.3-6.7) Absolute Nucleated RBC 0.0 K/mm3 (0.0-0.012) Nucleated RBC % 0.0 % (0.0-0.2) Platelet Estimate Adequate (Adequate) Hypochromasia 1+ (NORMAL) Anisocytosis 1+ (NORMAL) Schistocytes None seen (NORMAL) RPR Pending Influenza A (RT-PCR) Negative (Negative) Influenza B (RT-PCR) Negative (Negative) RSV (RT-PCR) Negative (Negative) SARS-CoV-2 RNA (RT-PCR) Negative (Negative) Blood Type A Positive Antibody Screen Negative Crossmatch See Detail Patient hx anesthesia problems: none Family hx anesthesia problems: none Results Review: All pre-operative results and documents have been reviewed as part of the pre-operative evaluation. [facility] Past Medical History Medical History Gonorrhea HPV (human papilloma virus) anogenital infection Maternal varicella, non-immune Rubella non-immune status, antepartum Term Surgical History Surgical History H/O lithotripsy Family History Family History Other Unknown family medical history Social History Social History Smoking status: Never smoker Second hand tobacco smoke exposure: Yes Alcohol intake: never Substance use: never Substance use type: marijuana Do You Feel Safe in your Home?: Yes Lack of Transportation: No Lack of Food: Never True Current Housing: I Have Housing Concerned About Future Housing: No Difficulty Paying Gas/Electric Bills: No Difficulty Paying for Meds: No Currently Unemployed: No Education: High School Diploma/GED Difficulty w/ Childcare or Family Care: No Living arrangements: with family Occupation/Education: unemployed Gender identity (if verbalized by the patient): Female Sexual Orientation (if Verbalized by the Patient): Straight or Heterosexual Spiritual care concerns: No Agree to blood products: Yes Exam Day of Procedure 10/06/23 11:51
[2023-10-06] MEDS: SODIUM CHLORIDE 0.9% IV 250 ML 30 ML IV CONT (11:53)
[2023-10-06 11:59] LABS: Rapid Plasma Reagin Non-Reactive (NonReactive)
[2023-10-06] MEDS: TUBING, BLOOD PLUM PUMP TUBING 1 EACH XX (12:00)
[2023-10-06] MEDS: ePHEDrine sulfate INJ 50 MG/ML AMPUL IV PUSH (12:30)
[2023-10-06] MEDS: ONDANSETRON INJ 4 MG/2 ML VIAL IV PUSH (12:32)
[2023-10-06] MEDS: OXYTOCIN 30 UNITS/NS 500 ML 30 UNITS/500 ML BAG 999 UNITS IV CONT (15:18)
--- NOTE | 2023-10-06 15:23 | P.PCNOB_ITS ---
OB - Vaginal Delivery Note Procedure Delivery date: 10/06/23 Events: Other (Decreased FM) Induction method: AROM Delivery monitor: External FHT and External Uterine Route of delivery: Episiotomy description: None Laceration Description: None Specimen: No Quantitative Blood Loss (ml): 75 Anesthesia type: Epidural Disposition: Floor Complications: No immediate complications [place] Baby Date of : 10/06/23 Time of : 15:15 Weeks of gestation at delivery: 40 Infant gender: Female Weight (pounds): 8 Weight (ounces): 1 presentation: vertex position: Right Occiput Posterior Placenta delivery description: Spontaneous Cord Vessel Description: 3 Vessels Narrative: mother and baby stable
[2023-10-06] MEDS: OXYTOCIN 30 UNITS/NS 500 ML 30 UNITS/500 ML BAG 125 UNITS IV CONT (15:49)
[2023-10-06] MEDS: ACETAMINOPHEN 325 MG TABLET 650 MG PO (18:40)
[2023-10-07] VITALS: BP 95/59; PULSE 62; RESP 18; TEMP 37.1
[2023-10-07 05:48] LABS: Hemoglobin 9.2 g/dL (12.0-15.0)
[2023-10-07] MEDS: POLYSACCHARIDE IRON COMPLEX 150 MG CAPSULE PO ×2 (08:04→16:07)
[2023-10-07] MEDS: DOCUSATE SODIUM 100 MG CAPSULE PO ×2 (08:04→16:07)
[2023-10-07] MEDS: IBUPROFEN 600 MG TABLET PO ×3 (08:05→23:44)
[2023-10-07 08:15] VITALS: BP 92/58; PULSE 65; RESP 18; TEMP 36.4; O2SAT 100
[2023-10-07] MEDS: IRON SUCROSE COMPLEX 400 MG in SODIUM CHLORIDE 0.9% IV 250 ML 108 MG IVPB (09:15)
--- NOTE | 2023-10-07 11:32 | PM.OBPNVD ---
OB - PN: Subj Subjective Date/time seen: 10/07/23 11:32 Patient comments: no complaints, pain well controlled, incisional pain, tolerating diet and flatus present OB - PN: Obj Data Labs 10/07/23 04:42 Labs: Laboratory Results - last 24 hr 10/06/23 10/06/23 10/07/23 09:57 10:44 04:42 Hgb 9.2 L Hct 31.0 L RPR Non-reactive Influenza A (RT-PCR) Negative Influenza B (RT-PCR) Negative RSV (RT-PCR) Negative SARS-CoV-2 RNA (RT-PCR) Negative Blood Type A Positive Antibody Screen Negative Crossmatch See Detail OB - PN A/P Plan day: 1 Plan: routine care Comments: No problems, routine care Time Spent With Patient Time: Total time spent is greater than 50% in coordination of care (as documented) at patient's floor/unit and/or counseling patient: Exam Const: General: comfortable, no acute distress and alert Resp: Effort & Inspection: normal respiratory effort Auscultation: no crackles, no rales and no rhonchi Cardio: Rate: regular rate Heart sounds: no click, no murmurs and no rubs GI: Inspection: non-distended GI Palp: No Tenderness to palpation present (GI) Auscultation: normal bowel sounds Other: Incision - CDI Extrem: General: normal to inspection, no pedal edema and no calf tenderness
[2023-10-07 12:15] VITALS: BP 88/51; PULSE 60; RESP 16; TEMP 37.6; O2SAT 98
[2023-10-07] MEDS: guaiFENesin/DEXTROMETHORPHAN 10 ML UDC PO ×4 (12:16→23:44)
[2023-10-07] MEDS: ACETAMINOPHEN 325 MG TABLET 650 MG PO ×2 (12:16→19:40)
[2023-10-07 20:00] VITALS: BP 95/64; PULSE 55; RESP 18; TEMP 36.5; O2SAT 99
[2023-10-08] MEDS: guaiFENesin/DEXTROMETHORPHAN 10 ML UDC PO ×2 (04:45→08:39)
[2023-10-08] MEDS: ACETAMINOPHEN 325 MG TABLET 650 MG PO (04:45)
[2023-10-08 08:00] VITALS: BP 100/63; PULSE 62; RESP 18; TEMP 36.8; O2SAT 98
--- NOTE | 2023-10-08 08:33 | P.PNOB_ITS ---
OB - PN: Subj Subjective Date/time seen: 10/08/23 08:33 Patient comments: no complaints, pain well controlled, incisional pain, tolerating diet and flatus present OB - PN: Obj Data Labs 10/07/23 04:42 OB - PN A/P Plan day: 1 Plan: routine care Comments: No problems, routine care Time Spent With Patient Time: Total time spent is greater than 50% in coordination of care (as documented) at patient's floor/unit and/or counseling patient: Exam Const: General: comfortable, no acute distress and alert Resp: Effort & Inspection: normal respiratory effort Auscultation: no c rackles, no rales and no rhonchi Cardio: Rate: regular rate Heart sounds: no click, no murmurs and no rubs GI: Inspection: non-distended GI Palp: No Tenderness to palpation present (GI) Auscultation: normal bowel sounds Other: Incision - CDI Extrem: General: normal to inspection, no pedal edema and no calf tenderness
--- NOTE | 2023-10-08 08:35 | PM.OBDSVD ---
DS: Admitting Diagnosis Discharge Date October 08, 2023 Admitting Diagnosis term OB - DS: Summary OB Procedures : None OB Procedures Intrapartum: Spontaneous Vag Delivery OB Procedures: : None Peripartum Data Laceration Description: None Episiotomy description: None Time Spent with Patient Time attestation: Total time spent providing and/or coordinating discharge services: Discharge Plan Discharge Consulting providers: Jennifer Johns Discharging Clinician: Jessica Rodriguez Patient Disposition: Home, Self-Care Activity: pelvic rest Diet: regular Patient Instructions: Antibiotic Form Stand Alone Forms: General Discharge Information Follow-up/Referrals: Jessica Rodriguez MD [Physician] - Discharge Medications: Continued PNV cmb#95-ferrous fumarate-FA [] 28 mg iron- 800 mcg tablet 1 tablet PO DAILY Date of admission: 10/06/23 09:42 Primary Care Provider: UNKNOWN,DOCTOR Admitting Provider: Jessica Rodriguez Attending physician on admission: Jessica Rodriguez Condition: Stable
[2023-10-08] MEDS: POLYSACCHARIDE IRON COMPLEX 150 MG CAPSULE PO (08:38)
[2023-10-08] MEDS: IBUPROFEN 600 MG TABLET PO (08:39)
[2023-10-08] MEDS: DOCUSATE SODIUM 100 MG CAPSULE PO (08:39)
== END 2023-10-08 12:03 | disposition home or self-care (01) | DRG 560 ==
LOC: ANHLDR 09:48 → ANHOB2 17:53
PROVIDERS: Advanced Practice Midwife; Admitting Provider Obstetrics & Gynecology; Visit Provider Obstetrics & Gynecology
DX: O76 Abnormality in fetal heart rate and rhythm complicating labor and delivery (principal); O99.02 Anemia complicating childbirth; D64.9 Anemia, unspecified; Z3A.40 40 weeks gestation of pregnancy; Z37.0 Single live birth; Z20.822 Contact with and (suspected) exposure to COVID-19
CPT/HCPCS: 36415; 36430; 85014; 85018; 85025; 86592; 86850; 86900; 86901; 86923; 87637; A9270; J1756; J2405; J2590; J2795; J7050; J7120; P9016